=== PATIENT | female | born 1995 | race Two or more races ===

== ENCOUNTER → 2019-12-25 | Outpatient (CLI) | payer OTHER | END | disposition home or self-care (01) | LOC: PRENATAL 13:15 | PROVIDERS: ATTEND Obstetrics & Gynecology Maternal & Fetal Medicine | DX: O44.02 Complete placenta previa NOS or without hemorrhage, second trimester (principal); O35.0XX1 Maternal care for (suspected) central nervous system malformation in fetus, fetus 1; O35.3XX1 Maternal care for (suspected) damage to fetus from viral disease in mother, fetus 1; O98.512 Other viral diseases complicating pregnancy, second trimester; Z36.89 Encounter for other specified antenatal screening; Z3A.19 19 weeks gestation of pregnancy ==

== ENCOUNTER → 2020-02-26 | Outpatient (CLI) | payer OTHER | END | disposition home or self-care (01) | LOC: PRENATAL 13:00 | PROVIDERS: ATTEND Obstetrics & Gynecology Maternal & Fetal Medicine | DX: O26.843 Uterine size-date discrepancy, third trimester (principal); O34.211 Maternal care for low transverse scar from previous cesarean delivery; O24.410 Gestational diabetes mellitus in pregnancy, diet controlled; Z36.89 Encounter for other specified antenatal screening; Z3A.33 33 weeks gestation of pregnancy ==

== ENCOUNTER 2020-05-04 16:23 | Inpatient (IN) | payer OTHER ==
[~2020-05-04] VITALS: Ht 160 cm; Wt 93.9 kg
[2020-05-04] MEDS ORDERED: PRENATAL TABLE1 EAC1 PO (18:02)
[2020-05-07] MEDS ORDERED: ANUSOL-HC30 G2 TOP (08:30)
== END 2020-05-07 14:40 | disposition home or self-care (01) | DRG 768 ==
LOC: LDR 16:23 → SURG-SUITE 05-06 11:47
PROVIDERS: ADMIT Obstetrics & Gynecology; ATTEND Obstetrics & Gynecology
PROC: 3E0P7VZ Introduction of Hormone into Female Reproductive, Via Natural or Artificial Opening (ICD-10-PCS; 2020-05-04)
PROC: 4A1HXFZ Monitoring of Products of Conception, Cardiac Rhythm, External Approach (ICD-10-PCS; 2020-05-04)
PROC: 10E0XZZ Delivery of Products of Conception, External Approach (ICD-10-PCS; principal; 2020-05-05)
PROC: 0DQR0ZZ Repair Anal Sphincter, Open Approach (ICD-10-PCS; 2020-05-05)
PROC: 10907ZC Drainage of Amniotic Fluid, Therapeutic from Products of Conception, Via Natural or Artificial Opening (ICD-10-PCS; 2020-05-05)
PROC: 3E033VJ Introduction of Other Hormone into Peripheral Vein, Percutaneous Approach (ICD-10-PCS; 2020-05-05)
DX: O13.4 Gestational [pregnancy-induced] hypertension without significant proteinuria, complicating childbirth (principal); O70.20 Third degree perineal laceration during delivery, unspecified; Z37.0 Single live birth; Z3A.37 37 weeks gestation of pregnancy; Z20.822 Contact with and (suspected) exposure to COVID-19

== ENCOUNTER 2022-05-07 18:10 | Emergency (ER) | payer OTHER ==
[~2022-05-07] VITALS: Ht 160 cm; Wt 84.4 kg
[~2022-05-07 18:10] MED LIST: ANUSOL-HC30 G2 TOP; PRENATAL TABLE1 EAC1 PO
== END 2022-05-08 03:40 | disposition home or self-care (01) ==
LOC: ER 18:10
DX: O99.611 Diseases of the digestive system complicating pregnancy, first trimester (principal); Z3A.11 11 weeks gestation of pregnancy; K52.89 Other specified noninfective gastroenteritis and colitis

== ENCOUNTER 2022-07-13 14:31 | Outpatient (CLI) | payer OTHER | END 2022-07-13 15:53 | disposition home or self-care (01) | LOC: PRENATAL 14:31 | PROVIDERS: ATTEND Obstetrics & Gynecology Maternal & Fetal Medicine | DX: O35.9XX0 Maternal care for (suspected) fetal abnormality and damage, unspecified, not applicable or unspecified (principal); O35.3XX0 Maternal care for (suspected) damage to fetus from viral disease in mother, not applicable or unspecified; Z3A.20 20 weeks gestation of pregnancy ==

== ENCOUNTER 2022-10-04 09:25 | Outpatient (CLI) | payer OTHER | END 2022-10-04 10:25 | disposition home or self-care (01) | LOC: PRENATAL 09:25 | PROVIDERS: ATTEND Obstetrics & Gynecology Maternal & Fetal Medicine | DX: O26.849 Uterine size-date discrepancy, unspecified trimester (principal); O36.8199 Decreased fetal movements, unspecified trimester, other fetus; Z3A.32 32 weeks gestation of pregnancy ==

== ENCOUNTER 2022-11-10 08:25 | Inpatient (IN) | payer OTHER ==
[~2022-11-10] VITALS: Ht 160 cm; Wt 94.3 kg
[2022-11-10] MEDS ORDERED: PRENATAL TABLE1 EAC4 PO (08:38)
[2022-11-10] MEDS ORDERED: IRON236 MG PO (08:39)
[2022-11-10] MEDS ORDERED: MAGNESIUM200 MG PO (08:40)
[2022-11-12] MEDS ORDERED: NAPR500T14 PO (09:09)
== END 2022-11-12 11:18 | disposition home or self-care (01) | DRG 807 ==
LOC: LDR 08:25 → OB/GYN 14:27
PROVIDERS: Specialist; Student in an Organized Health Care Education/Training Program; ADMIT Obstetrics & Gynecology; ATTEND Obstetrics & Gynecology
PROC: 10E0XZZ Delivery of Products of Conception, External Approach (ICD-10-PCS; principal; 2022-11-10)
PROC: 4A1HXCZ Monitoring of Products of Conception, Cardiac Rate, External Approach (ICD-10-PCS; 2022-11-10)
PROC: 3E033VJ Introduction of Other Hormone into Peripheral Vein, Percutaneous Approach (ICD-10-PCS; 2022-11-10)
DX: O80 Encounter for full-term uncomplicated delivery (principal); Z37.0 Single live birth; Z3A.37 37 weeks gestation of pregnancy; Z20.822 Contact with and (suspected) exposure to COVID-19

== ENCOUNTER → 2024-04-10 08:59 | Outpatient (CLI) | payer OTHER ==
[~2024-04-10 08:59] MED LIST changes: +IRON236 MG PO; +MAGNESIUM200 MG PO; +NAPR500T14 PO; +PRENATAL TABLE1 EAC4 PO
== END | disposition home or self-care (01) ==
LOC: PRENATAL 08:59
PROVIDERS: ATTEND Obstetrics & Gynecology Maternal & Fetal Medicine
DX: O44.00 Complete placenta previa NOS or without hemorrhage, unspecified trimester (principal); Z3A.26 26 weeks gestation of pregnancy

== ENCOUNTER 2024-05-17 08:24 | Emergency (ER) | payer OTHER ==
[~2024-05-17] VITALS: Ht 160 cm; Wt 87.1 kg
[2024-05-17] MEDS ORDERED: ONDANSETRON HCL 2 MG/ML VIAL IV ONE (08:45)
[2024-05-17] MEDS ORDERED: 0.9 % SODIUM CHLORIDE 1,000 ML IV ONE (08:45)
[2024-05-17 09:17] LABS: HEMATOCRIT 34.5 % (36.0-45.00); HEMOGLOBIN 11.7 g/dL (12.0-15.00); MEAN CELL VOLUME 87.6 fL (80.00-100.00); MEAN CORPUSCULAR HEMOGLOBIN 29.6 pg (27.00-32.0); MEAN CORPUSCULAR HGB CONC 33.8 g/dl (32.0-36.0); PLATELET COUNT 152 K/uL (150-450); RED BLOOD COUNT 3.94 M/uL (4.00-6.00)
[2024-05-17 09:18] LABS: RED CELL DISTRIBUTION WIDTH 16.1 % (11.5-14.5)
[2024-05-17 09:53] LABS: ALBUMIN 2.8 gm/dL (3.4-5.0); BILIRUBIN TOTAL 0.47 mg/dL (0.3-1.2); CALCIUM 8.6 mg/dL (8.5-10.1); CREATININE SERUM 0.42 mg/dL (0.55-1.02); GFR 177.15; GLOBULINA 4.1 G/DL (2.4-3.5); POTASSIUM 3.69 mEq/L (3.5-5.1); TOTAL PROTEIN 6.9 gm/dL (6.4-8.2)
[2024-05-17 13:03] LABS: PH,URINE 5.5 (5.0-8.0); URINE APPEARANCE Clear; URINE BILIRRUBIN Negative (NEGATIVE); URINE BLOOD Trace; URINE COLOR Dark Yellow; URINE GLUCOSE Negative (NEGATIVE); URINE LEUKOCYTE Small; URINE NITRATE Negative; URINE PROTEIN 30 (NEGATIVE); URINE UROBILINOGEN 0.2 E.U./dl
[2024-05-17 13:06] LABS: URINE BACTERIA 1234.9 uL (0.0-1933); URINE RBC 13.2 uL (0.0-20.8); URINE WBC 102.1 uL (0.0-23.2)
[2024-05-17 13:22] LABS: URINE CAST 0.73 uL (0.0-1.40); URINE KETONE 80 (NEGATIVE)
[2024-05-17] MEDS ORDERED: AMOX1TAB5 PO (13:29)
[2024-05-17] MEDS ORDERED: ZOFRAN8 MG PO (13:29)
[2024-05-17] MEDS ORDERED: PEPCID AC20 MG PO (13:29)
== END 2024-05-17 13:37 | disposition home or self-care (01) ==
LOC: ER 08:26
PROVIDERS: General Practice
DX: O23.43 Unspecified infection of urinary tract in pregnancy, third trimester (principal); N39.0 Urinary tract infection, site not specified; O99.613 Diseases of the digestive system complicating pregnancy, third trimester; R19.7 Diarrhea, unspecified; Z3A.31 31 weeks gestation of pregnancy; Z91.013 Allergy to seafood; Z91.018 Allergy to other foods; Z20.822 Contact with and (suspected) exposure to COVID-19

== ENCOUNTER 2024-06-05 10:34 | Outpatient (CLI) | payer OTHER ==
[~2024-06-05 10:34] MED LIST changes: +AMOX1TAB5 PO; +PEPCID AC20 MG PO; +ZOFRAN8 MG PO
== END 2024-06-05 10:36 | disposition home or self-care (01) ==
LOC: PRENATAL 10:34
PROVIDERS: ATTEND Obstetrics & Gynecology Maternal & Fetal Medicine
DX: O26.849 Uterine size-date discrepancy, unspecified trimester (principal); O36.8199 Decreased fetal movements, unspecified trimester, other fetus; O99.019 Anemia complicating pregnancy, unspecified trimester; Z3A.34 34 weeks gestation of pregnancy

== ENCOUNTER 2024-07-04 09:00 | Outpatient (CLI) | payer OTHER ==
[2024-07-04 07:58] VITALS: BP 106/68
== END 2024-07-04 11:55 | disposition home or self-care (01) ==
LOC: OBS/DEL 09:00
PROVIDERS: ATTEND Obstetrics & Gynecology
DX: O26.893 Other specified pregnancy related conditions, third trimester (principal); O47.1 False labor at or after 37 completed weeks of gestation; Z3A.38 38 weeks gestation of pregnancy

== ENCOUNTER 2024-07-06 00:10 | Inpatient (IN) | payer OTHER ==
[2024-07-05 23:00] VITALS: BP 115/71
[~2024-07-06] VITALS: Ht 160 cm; Wt 3.2 kg
[2024-07-06 00:45] LABS: PH,URINE 6.5 (5.0-8.0); URINE APPEARANCE Clear; URINE BILIRRUBIN Negative (NEGATIVE); URINE BLOOD Small; URINE COLOR Yellow; URINE GLUCOSE Negative (NEGATIVE); URINE KETONE Negative (NEGATIVE); URINE LEUKOCYTE Small; URINE NITRATE Negative; URINE PROTEIN Negative (NEGATIVE); URINE UROBILINOGEN 0.2 E.U./dl
[2024-07-06 00:47] LABS: HEMATOCRIT 31.5 % (36.0-45.00); HEMOGLOBIN 10.7 g/dL (12.0-15.00); MEAN CELL VOLUME 87.2 fL (80.00-100.00); MEAN CORPUSCULAR HEMOGLOBIN 29.5 pg (27.00-32.0); MEAN CORPUSCULAR HGB CONC 33.8 g/dl (32.0-36.0); RED BLOOD COUNT 3.62 M/uL (4.00-6.00); RED CELL DISTRIBUTION WIDTH 17.2 % (11.5-14.5)
[2024-07-06 00:57] LABS: URINE BACTERIA 245.9 uL (0.0-1933); URINE EPITHELIAL CELLS 11.2 uL (0.0-38.8); URINE RBC 13.2 uL (0.0-20.8); URINE WBC 35.6 uL (0.0-23.2)
[2024-07-06 01:04] LABS: INR 0.95; PARTIAL THROMBOPLASTIN TIME 25.9 SECONDS (22.0-34.0); PROTHROMBIN TIME 10.4 SECONDS (9.0-11.5)
[2024-07-06] MEDS ORDERED: ZYRTEC10 M3 PO (01:06)
[2024-07-06] MEDS ORDERED: CHILDREN'S ASPI81 MG PO (01:06)
[2024-07-06 01:08] LABS: ALBUMIN 2.5 gm/dL (3.4-5.0); BILIRUBIN TOTAL 0.2 mg/dL (0.3-1.2); CALCIUM 9.1 mg/dL (8.5-10.1); CREATININE SERUM 0.42 mg/dL (0.55-1.02); GFR 175.98; GLOBULINA 3.6 G/DL (2.4-3.5); POTASSIUM 3.74 mEq/L (3.5-5.1); TOTAL PROTEIN 6.1 gm/dL (6.4-8.2)
[2024-07-06 01:23] LABS: PLATELET COUNT 121 K/uL (150-450)
[2024-07-06 03:26] VITALS: BP 111/71
[2024-07-06 06:10] VITALS: BP 110/72; O2SAT 98
[2024-07-06 08:38] VITALS: BP 110/72
[2024-07-06] MEDS ORDERED: OXYTOCIN 10 UNITS/ML VIAL ONE ×3 (09:48→17:38)
[2024-07-06] MEDS ORDERED: RINGERS SOLUTION,LACTATED 1,000 ML IV SCH ×2 (11:45→14:15)
[2024-07-06] MEDS ORDERED: ERYTHROMYCIN BASE OPHT 1GM EACH TUBE OP ONE ×2 (12:30→14:15)
[2024-07-06] MEDS ORDERED: CEFAZOLIN SODIUM 1,000 MG VIAL ONE (12:56)
[2024-07-06] MEDS ORDERED: CHLORHEXIDINE GLUCONATE 120 ML BOTTLE TP NR (14:15)
[2024-07-06] MEDS ORDERED: OXYTOCIN 1,000 ML IV SCH (14:15)
[2024-07-06] MEDS ORDERED: MORPHINE SULFATE 4 MG/ML CARTRIDGE IV PRN (14:15)
[2024-07-06] MEDS ORDERED: ONDANSETRON HCL 2 MG/ML VIAL IV PRN (14:15)
[2024-07-06] MEDS ORDERED: MORPHINE SULFATE 4 MG/ML VIAL IV ONE ×2 (15:15→17:35)
[2024-07-06] MEDS ORDERED: SIMETHICONE 125 MG CAPSULE PO SCH (18:00)
[2024-07-06 19:21] VITALS: BP 116/71
[2024-07-06 19:27] LABS: HEMATOCRIT 32.7 % (36.0-45.00); HEMOGLOBIN 10.8 g/dL (12.0-15.00); MEAN CELL VOLUME 89.1 fL (80.00-100.00); MEAN CORPUSCULAR HEMOGLOBIN 29.4 pg (27.00-32.0); RED BLOOD COUNT 3.67 M/uL (4.00-6.00); RED CELL DISTRIBUTION WIDTH 16.9 % (11.5-14.5)
[2024-07-06 19:32] LABS: PLATELET COUNT 121 K/uL (150-450)
[2024-07-07 00:05] VITALS: BP 100/62
[2024-07-08] VITALS: BP 102/67
[2024-07-08 08:46] VITALS: BP 105/67
[2024-07-08] MEDS ORDERED: NAPROXEN 500 MG TABLET PO SCH (09:00)
[2024-07-08] MEDS ORDERED: ACETAMINOPHEN WITH CODEINE 1 UDTAB TABLET PO PRN (09:15)
[2024-07-08 15:44] VITALS: BP 115/79
[2024-07-09] VITALS: BP 100/66
[2024-07-09] MEDS ORDERED: NAPR500T14 PO (08:55)
[2024-07-09] MEDS ORDERED: ACETAMINOPHEN-1 EAC2 PO (08:55)
[2024-07-09 09:09] VITALS: BP 108/72
== END 2024-07-09 13:49 | disposition home or self-care (01) | DRG 788 ==
LOC: OBS/DEL 00:10 → LDR 08:46 → OB/GYN 08:46 → O/R 08:46 → OB/GYN 14:40
PROVIDERS: Obstetrics & Gynecology; ADMIT Obstetrics & Gynecology; ATTEND Obstetrics & Gynecology
PROC: 4A1HXCZ Monitoring of Products of Conception, Cardiac Rate, External Approach (ICD-10-PCS; 2024-07-06)
PROC: 10D00Z1 Extraction of Products of Conception, Low, Open Approach (ICD-10-PCS; principal; 2024-07-06 13:00)
DX: O82 Encounter for cesarean delivery without indication (principal); O64.0XX0 Obstructed labor due to incomplete rotation of fetal head, not applicable or unspecified; Z3A.38 38 weeks gestation of pregnancy; Z37.0 Single live birth